=== PATIENT | female | born 1955 | race Caucasian/White ===

== ENCOUNTER → 2017-01-28 | Outpatient (CLI) | payer OTHER ==
--- NOTE | 2017-01-28 10:15 | RAD ---
EXAM: MAMMO ZEN DIAG BILAT, BREAST RIGHT. HISTORY: Palpable lump in the upper outer right breast. COMPARISON: Outside mammogram 10/01/2015. FINDINGS: 2-D and 3-D tomosynthesis mammograms were obtained of both breasts in the CC and MLO projections. Computer-aided detection (CAD) was utilized. A BB was placed in the upper outer right breast in area of clinical concern. The breast parenchyma demonstrate scattered fibroglandular densities (tissue density B). No dominant suspicious mass, suspicious microcalcifications, or architectural distortion is identified. No mammographic abnormality is seen associated with the BB. Further evaluation was performed with right breast ultrasound. Ultrasound imaging was performed by cytotechnologist supervisor. Ultrasound imaging as well as performed in the right breast from 10:00 to 12:00 in area of clinical interest. No solid or cystic masses are identified. Normal breast parenchyma is seen. IMPRESSION: No mammographic evidence of malignancy. No mammographic or sonographic abnormality identified. BI-RADS CATEGORY: 1 NEGATIVE RECOMMENDED FOLLOW-UP: 12M 12 MONTH FOLLOW-UP PQRS compliance statement: Patient information was entered into a reminder system with a target due date for the next mammogram. Mammography is a sensitive method for finding small breast cancers, but it does not detect them all and is not a substitute for careful clinical examination. A negative mammogram does not negate a clinically suspicious finding and should not result in delay in biopsying a clinically suspicious abnormality. "Our facility is accredited by the [employer] Mammography Program."
== END | disposition home or self-care (01) ==
LOC: MAMMO 08:43
PROVIDERS: ATTEND Family Medicine
DX: N63 Unspecified lump in breast (principal)
CPT/HCPCS: 76641; G0204; G0279; 77062; 77066